=== PATIENT | male | born 1955 | race Hispanic/Latino ===

== ENCOUNTER 2020-07-13 00:55 | Emergency (ER) | payer MEDICARE ==
[~2020-07-13] VITALS: Ht 177.8 cm; Wt 95.3 kg
[2020-07-13] MEDS ORDERED: PANTOPRAZOLE 40 MG 10ML VIAL IV STA (01:01)
[2020-07-13] MEDS ORDERED: KETOROLAC TROMETHAMINE 30 MG/ML VIAL IV STA (01:01)
[2020-07-13 01:15] LABS: BASOPHILS # (AUTO) 0.1 (0.0-0.1); BASOPHILS % 0.6 % (0.0-1.0); EOSINOPHILS # (AUTO) 0.4 (0.0-0.4); EOSINOPHILS % 4.7 % (0.0-6.0); HEMATOCRIT 45.6 % (38.2-49.6); HEMOGLOBIN 15.1 g/dL (14.0-18.0); LYMPHOCYTES # (AUTO) 2.7 (1.0-3.2); LYMPHOCYTES % 32.2 % (18.0-39.1); MEAN CORPUSCULAR HEMOGLOBIN 28.3 pg (28-32); MEAN CORPUSCULAR HGB CONC 33.1 g/dL (31-35); MEAN CORPUSCULAR VOLUME 85.6 fL (81-99); MONOCYTES # (AUTO) 0.8 (0.2-0.8); MONOCYTES % 9.3 % (4.4-11.3); NEUTROPHILS # (AUTO) 4.5 (2.1-6.9); NEUTROPHILS % 52.6 % (38.7-80.0); PLATELET COUNT 233 x10e3/uL (140-360); RED BLOOD COUNT 5.33 x10e6/uL (4.3-5.7); RED CELL DISTRIBUTION WIDTH 13.7 % (11.7-14.4)
[2020-07-13] MEDS ORDERED: DICYCLOMINE HCL 20 MG/2 ML VIAL IM ONE (01:15)
--- NOTE | 2020-07-13 01:20 | Emergency Department Note ---
History of Present Illnes History of Present Illness Chief Complaint: Abdominal Complaints History of Present Illness This is a 64 year old male WITH INTERMITTENT RUQ PAIN FOR OVER A MONTH, PAIN STARTED AGAIN AFTER EATING CEREAL WITH MILK AT 8 PM LAST NIGHT, PT REPORTS DIAGNOSED WITH GALLSTONES. DENIES N/V/D, HAS AN APPOINTMENT WITH SURGEON THIS MORNING TO SCHEDULE CHOLECYSTECTOMY. Historian: Patient Arrival Mode: Car Onset (how long ago): month(s) (1) Location: RUQ Quality: PAIN Radiation: Reports back Severity: moderate Onset quality: sudden Duration (how long): hour(s) (1) Timing of current episode: constant Progression: partially resolved Chronicity: recurrent Context: Reports recent illness (DIAGNOSED WITH GALLSTONES 1 WEEK AGO); Denies recent surgery, Denies trauma/injury Relieving factors: none Exacerbating factors: other (EATING) Associated symptoms: Reports denies other symptoms Treatments prior to arrival: none Past Medical/Family History Physician Review I have reviewed the patient's past medical and family history. Any updates have been documented here. Past Medical History Recent Fever: No Clinical Suspicion of Infectio: No New/Unexplained Change in Ment: No Past Medical History: Hypertension, Hyperlipedemia Past Surgical History: Knee Replacement, Back Surgery Social History Smoking Cessation: Never Smoker Alcohol Use: None Any Illegal Drug Use: No Family History Family history of heart diseas: No Review of Systems Review of Systems Constitutional: Reports no symptoms EENTM: Reports no symptoms Cardiovascular: Reports no symptoms Respiratory: Reports no symptoms Gastrointestinal: Reports as per HPI Genitourinary: Reports no symptoms Musculoskeletal: Reports no symptoms Integumentary: Reports no symptoms Neurological: Reports no symptoms Psychological: Reports no symptoms Endocrine: Reports no symptoms Hematological/Lymphatic: Reports no symptoms Physical Exam Related Data Allergies: Coded Allergies: No Known Allergies (Unverified , 07/13/20) Triage Vital Signs Vital Signs Date Time Temp Pulse Resp B/P (MAP) Pulse Ox O2 Delivery O2 Flow Rate FiO2 07/13/20 01:00 97.9 87 20 158/98 99 Room Air Vital signs reviewed: Yes Physical Exam CONSTITUTIONAL Constitutional: Present well-developed, Present well-nourished; Absent distressed HENT HENT: Present normocephalic, Present atraumatic, Present oropharynx c lear/moist, Present nose normal HENT L/R: Present left ext ear normal, Present right ext ear normal EYES Eyes: Reports PERRL, Reports conjunctivae normal NECK Neck: Present ROM normal PULMONARY Pulmonary: Present effort normal, Present breath sounds normal CARDIOVASCULAR Cardiovascular: Present regular rhythm, Present heart sounds normal, Present capillary refill normal, Present normal rate GASTROINTESTINAL Abdominal: Present soft, Present bowel sounds normal, Present tender (MILD RUQ ); Absent guarding, Absent mass GENITOURINARY Genitourinary: Present exam deferred SKIN Skin: Present warm, Present dry MUSCULOSKELETAL Musculoskeletal: Present ROM normal NEUROLOGICAL Neurological: Present alert, Present oriented x 3, Present no gross motor or sensory deficits PSYCHOLOGICAL Psychological: Present mood/affect normal, Present judgement normal Results Laboratory Laboratory Laboratory Tests Test 07/13/20 01:08 White Blood Count 8.46 x10e3/uL (4.8-10.8) Red Blood Count 5.33 x10e6/uL (4.3-5.7) Hemoglobin 15.1 g/dL (14.0-18.0) Hematocrit 45.6 % (38.2-49.6) Mean Corpuscular Volume 85.6 fL (81-99) Mean Corpuscular Hemoglobin 28.3 pg (28-32) Mean Corpuscular Hemoglobin Concent 33.1 g/dL (31-35) Red Cell Distribution Width 13.7 % (11.7-14.4) Platelet Count 233 x10e3/uL (140-360) Neutrophils (%) (Auto) 52.6 % (38.7-80.0) Lymphocytes (%) (Auto) 32.2 % (18.0-39.1) Monocytes (%) (Auto) 9.3 % (4.4-11.3) Eosinophils (%) (Auto) 4.7 % (0.0-6.0) Basophils (%) (Auto) 0.6 % (0.0-1.0) Neutrophils # (Auto) 4.5 (2.1-6.9) Lymphocytes # (Auto) 2.7 (1.0-3.2) Monocytes # (Auto) 0.8 (0.2-0.8) Eosinophils # (Auto) 0.4 (0.0-0.4) Basophils # (Auto) 0.1 (0.0-0.1) Absolute Immature Granulocyte (auto 0.05 x10e3/uL (0-0.1) Sodium Level 140 mmol/L (136-145) Potassium Level 3.8 mmol/L (3.5-5.1) Chloride Level 103 mmol/L (98-107) Carbon Dioxide Level 26 mmol/L (22-29) Anion Gap 14.8 mmol/L (8-16) Blood Urea Nitrogen 15 mg/dL (7-26) Creatinine 1.02 mg/dL (0.72-1.25) Estimat Glomerular Filtration Rate > 60 ML/MIN (60-) BUN/Creatinine Ratio 15 (6-25) Glucose Level 133 mg/dL (74-118) Calcium Level 9.6 mg/dL (8.4-10.2) Total Bilirubin 0.5 mg/dL (0.2-1.2) Aspartate Amino Transf (AST/SGOT) 20 IU/L (5-34) Alanine Aminotransferase (ALT/SGPT) 35 IU/L (0-55) Alkaline Phosphatase 76 IU/L (40-150) Total Protein 7.5 g/dL (6.5-8.1) Albumin 4.4 g/dL (3.5-5.0) Globulin 3.1 g/dL (2.3-3.5) Albumin/Globulin Ratio 1.4 (0.8-2.0) Amylase Level 54 U/L (25-125) Lipase 30 U/L (8-78) Lab results reviewed: Yes Assessment & Plan Medical Decision Making MDM PT WITH KNOWN GALLSTONES WITH RUQ PAIN CBC, CMP, AMYLASE, LIPASE, ORDERED TO EVAL FOR ELEVATED LFT'S, PANCREATITIS, ELECTROLYTE ABNORMALITY, LEUKOCYTOSIS PROTONIX 40 MG IV ORDERED BENYTL 20 MG IM ORDERED TORADOL 30 MG IV ORDERED Reassessment Reassessment time: 01:36 Reassessment PT NOW PAIN FREE Assessment & Plan Final Impression: (1) Gallstones (2) Biliary colic Depart Disposition: HOME, SELF-CARE Last Vital Signs Date Time Temp Pulse Resp B/P (MAP) Pulse Ox O2 Delivery O2 Flow Rate FiO2 07/13/20 01:00 97.9 87 20 158/98 99 Room Air Medications in the ED Dicyclomine HCl 20 mg ONCE ONCE IM ; Start 07/13/20 at 01:15; Stop 07/13/20 at 01:16 Ketorolac Tromethamine 30 mg ONCE STAT IV ; Start 07/13/20 at 01:01; Stop 07/13/20 at 01:02; Status UNV Pantoprazole Sodium 40 mg NOW STAT IV ; Start 07/13/20 at 01:01; Stop 07/13/20 at 01:02; Status UNV BERNABE PATEL MD Jul 13, 2020 01:20
--- OUTSIDE RECORDS SUMMARY | 2020-07-13 01:29 | XMS REPORT | Continuity of Care Document ---
Author Author [facility] t Organization [facility] Address [address] [place] [address] Phone Unavailable Care Team Providers Care Leather Goods Maker Name Role Phone Anil GARCIA, Andrew PCP Unavailable Problems Condition Name Condition Details Condition Category Status Onset Date Resolution Date Last Treatment Date Treating Clinician Comments Source Cervical radiculopathy Cervical radiculopathy Disease Active 2018-02-04 00:00:00 [facility] Allergies, Adverse Reactions, Alerts Allergy Name Allergy Type Status Severity Reaction(s) Onset Date Inacti ve Date Treating Clinician Comments Source Tamsulosin Propensity to adverse reactions Active 01-28 00:00:[address] [facility] Social History Social Habit Start Date Stop Date Quantity Comments Source Sex Assigned At [facility] Smoking Status Start Date Stop Date Source Never smoker [facility] Medications Ordered Medication Name Filled Medication Name Start Date Stop Da te Current Medication? Ordering Clinician Indication Dosage Frequency Signature (SIG) Comments Components Source quinapril (ACCUPRIL) 5 MG tablet 2018-01-28 08:55:55 Yes 5mg Q.5D Take 5 mg by mouth 2 (two) times daily . [facility] finasteride (PROSCAR) 5 mg tablet 2018-01-28 08:55:55 Yes 5mg QD Take 5 mg by mouth daily. [facility] HYDROcodone-acetaminophen (NORCO 10-325) 10-325 mg per table t 2018-01-28 08:55:55 Yes 1{tbl} Take 1 tab let by mouth every 6 (six) hours as needed for Pain. [facility] omeprazole (PRILOSEC) 40 MG capsule 2018-01-28 08:55:55 Yes 40mg QD Take 40 mg by mouth daily. [facility] traMADol (ULTRAM-ER) 300 MG 24 hr tablet 2018-01-26 08:40:54 Yes 300mg QD Take 300 mg by mouth daily. [facility] simvastatin (ZOCOR) 40 MG tablet 2018-01-26 08:38:37 Yes 40mg QD Take 40 mg by mouth nightly. [facility] Procedures This patient has no known procedures. Results Test Description Test Time Test Comments Results Result Comments Source CT, MYELOGRAM, CERVICAL VIA LUMBAR INJECTION,W/FLUORO 03-02 13:44:00 Reason for Exam:->m54.12 Addendum BeginsREPORT STATUS:A PATIENT I D: [id number] TECHNIQUE: Dose modulation, iterative reconstruction, and/or weight based adjustment of the mA/kV was utilized to reduce the radiation dose to as low as reasonably achievable. Signed: Natanael Momin MDReport Verified Date/Time: 03/02/2018 13:44:20 Reading Location: [facility] Radiology Reading RoomAddendum EndsFINAL REPORT Cervical myelogram 3 views with post myelogram CT cervical spine 01/26/2018 11:04 AM CLINICAL INDICATION: m54.12 COMPARISON: None available TOTAL FLUOROSCOPY TIME: 2.1 minutes DESCRIPTION OF PROCEDURE: Details of the procedure, risks, benefits, alternatives, and questions were discussed. Informed consent was obtained from the patient as documented on the chart. The patient was sterilely prepped and d raped; 1% lidocaine was used for local anesthesia. Using fluoroscopic guidance, a 22 gauge spinal needle was introduced into the thecal sac at the L2-3 level and 10 cc of Isovue-M 300 were infused. The patient was placed in Trendelenburg position with the neck extended and myelographic images of the cervical spine were obtained. There were no procedure-related complications. The patient was transferred to CT for axial imaging obtained with bone and soft tissue algorithms with sagittal and coronal reconstructions. FINDINGS: there is no fracture or malalignment. There are no osteolytic or osteoblastic lesions. Spinal cord is normal in size and contour. There is congenital spinal stenosis; AP central canal diameter measures 11 to 12 mm. At C2-3, uncovertebral joint arthropathy contributes to mild right foraminal stenosis. At C3-4, dorsal disc osteophyte complex and facet joint arthropathy contribute to mild right and severe left foraminal stenosis. Posterior ligamentous thickening contribute to m ild central canal stenosis. At C4-5, dorsal disc osteophyte complex and facet joint arthropathy contribute to mild bilateral foraminal stenosis. Posterior ligamentous thickening contribute to mild central canal stenosis. At C5-6, dorsal disc osteophyte complex and facet joint arthropathy contribute to severe bilateral foraminal stenosis, with mild central canal stenosis. At C6-7, dorsal disc osteophyte complex and facet joint arthropathy contribute to severe bilateral foraminal stenosis, with mild canal stenosis. C7-T1, posterolateral left dorsal osteophytic ridging and facet joint arthropathy contribute to mild right and severe left foraminal stenosis. The conventional myelographic images support these findings. The visualized soft tissue is without worrisome findings. DISPOSITION: The patient was discharged home in stable condition after the usual time course of observation. IMPRESSION: 1. No fracture or traumatic malalignment.2. Congenital spinal stenosis.3. Multilevel degenerative changes as discussed. Signed: Natanael Momin Verified Date/Time: 01/26/2018 11:09:47 Reading Location: [address] Neuro Reading Room , MYELOGRAM, CERVICAL 2018-03-02 13:44:00 Reason for Exam:->m5 4.12 Addendum BeginsREPORT STATUS:A TECHNIQUE: Dose modulation, iterative reconstruction, and/or weight based adjustment of the mA/kV was utilized to reduce the radiation dose to as low as reasonably achievable. Signed: Natanael Momin Verified Date/Time: 03/02/2018 13:44:20 Reading Location: [facility] Radiology Reading RoomAddendum EndsFINAL REPORT Cervical myelogram 3 views with post myelogram CT cervical spine 01/26/2018 11:04 AM CLINICAL INDICATION: m54.12 COMPARISON: None available TOTAL FLUOROSCOPY TIME: 2.1 minutes DESCRIPTION OF PROCEDURE: Details of the procedure, risks, benefits, alternatives, and questions were discussed. Informed consent was obtained from the patient as documented on the chart. The patient was sterilely prepped and draped; 1% lidocaine was used for local anesthesia. Using fluoroscopic guidance, a 22 gauge spinal needle was introduced into the thecal sac at the L2-3 level and 10 cc of Isovue-M 300 were infused. Th e patient was placed in Trendelenburg position with the neck extended and myelographic images of the cervical spine were obtained. There were no procedure-related complications. The patient was transferred to CT for axial imaging obtained with bone and soft tissue algorithms with sagittal and coronal reconstructions. FINDINGS: there is no fracture or malalignment. There are no osteolytic or osteoblastic lesions. Spinal cord is normal in size and contour. There is congenital spinal stenosis; AP central canal diameter measures 11 to 12 mm. At C2-3, uncovertebral joint arthropathy contributes to mild right foraminal stenosis. At C3-4, dorsal disc osteophyte complex and facet joint arthropathy contribute to mild right and severe left foraminal stenosis. Posterior ligamentous thickening contribute to mild central canal stenosis. At C4-5, dorsal disc osteophyte complex and facet joint arthropathy contribute to mild bilateral foraminal stenosis. Posterior ligamentous thickening contribute to mild central canal stenosis. At C5-6, dorsal disc osteophyte complex and facet joint arthropathy contribute to severe bilateral foraminal stenosis, with mild central canal stenosis. At C6-7, dorsal disc osteophyte complex and facet joint arthropathy contribute to severe bilateral foraminal stenosis, with mild canal stenosis. C7-T1, posterolateral left dorsal osteophytic ridging and facet joint arthropathy contribute to mild right and severe left foraminal stenosis. The conventional myelographic images support these findings. The visualized soft tissue is without worrisome findings. DISPOSITION: The patient was discharged home in stable condition after the usual time course of observation. IMPRESSION: 1. No fracture or traumatic malalignment.2. Congenital spinal stenosis.3. Multilevel degenerative changes as discussed. Signed: Natanael Momin Verified Date/Time: 01/26/2018 11:09:47 Reading Location: [facility] [id number] Neuro Reading Room , SPINE, CERVICAL, 1 VIEW 2018-02-04 09:55:00 Reason for exam:->CERVICAL RADICULOPATHY FINAL REPORT Cerv ical spine one view INDICATION: Surgical localization. COMPARISON: 01/26/2018 IMPRESSION: For counting purposes, 7 non rib-bearing cervical type vertebrae are assumed. A surgical curette projects over the posterior elements at the C6-7 intervertebral level. Retractors are seen posteriorly. Support devices are in place. Findings were reported to Dr. Valencia in or 12 at 9:55 AM. The surgeon agrees with these findings. Signed: Linda Steward [facility] Verified Date/Time: 02/04/2018 09:55:14 Reading Location: [facility] Radiology Reading Room
--- OUTSIDE RECORDS SUMMARY | 2020-07-13 01:29 | XMS REPORT | Clinical Summary ---
Author Author [facility] [place] [place] Address Unknown Phone Unavailable Care Team Providers Care Events Traffic Controller Name Role Phone Andrew Ma MD PCP Unavailable Allergies Comments Active Allergy Reactions Severity Noted Date dizziness Tamsulosin 01/28/2018 Medications End Date Status Medication Sig Dispensed Refills Start Date Active quinapril (ACCUPRIL) 5 MG Take 5 mg by 0 tablet mouth 2 (two) times daily . Active simvastatin (ZOCOR) 40 MG Take 40 mg by 0 tablet mouth nightly. Active traMADol (ULTRAM-ER) 300 Take 300 mg 0 MG 24 hr tablet by mouth daily. Active finasteride (PROSCAR) 5 Take 5 mg by 0 mg tablet mouth daily. Active HYDROcodone-acetaminophen Take 1 tablet 0 (NORCO 10-325) 10-325 mg by mouth per tablet every 6 (six) hours as needed for Pain. Active omeprazole (PRILOSEC) 40 Take 40 mg by 0 MG capsule mouth daily. Active Problems Problem Noted Date Cervical radiculopathy 02/04/2018 Social History Date Tobacco Use Types Packs/Day Years Used Never Smoker Smokeless Tobacco: Never Used Alcohol Use Drinks/Week oz/Week Comments No Sex Assigned at Date Recorded Not on file Industry Job Start Date Occupation Not on file Not on file Not on file Travel End Travel History Travel Start No recent travel history available. Last Filed Vital Signs Not on file Plan of Treatment Not on file Results Not on fileafter 07/13/2019 Insurance Payer Benefit Subscriber ID Type Phone Address Plan / Group BLUE CROSS/BLUE SHIELD BCBS HMO xxxxxxxxxxxx HMO/POS [address] [place] [address] [place] [phone] Advance Directives For more information, please contact: [address] [address] Date Inactivated Comments Code Status Date Activated 02/04/2018 7:58 PM Full Code 02/04/2018 6:23 AM This code status was determined by: Patient
[2020-07-13 01:31] LABS: AMYLASE 54 U/L (25-125); LIPASE 30 U/L (8-78)
[2020-07-13 01:32] LABS: ALANINE AMINOTRANSFERASE 35 IU/L (0-55); ALBUMIN 4.4 g/dL (3.5-5.0); ALBUMIN/GLOBULIN RATIO 1.4 (0.8-2.0); ALKALINE PHOSPHATASE 76 IU/L (40-150); ANION GAP 14.8 mmol/L (8-16); BLOOD UREA NITROGEN 15 mg/dL (7-26); BUN/CREATININE RATIO 15 (6-25); CALCIUM 9.6 mg/dL (8.4-10.2); CARBON DIOXIDE 26 mmol/L (22-29); CHLORIDE 103 mmol/L (98-107); CREATININE, SERUM 1.02 mg/dL (0.72-1.25); EST GLOMERULAR FILTRATION RATE > 60 ML/MIN (60-); GLUCOSE 133 mg/dL (74-118); POTASSIUM 3.8 mmol/L (3.5-5.1); SODIUM 140 mmol/L (136-145)
[2020-07-13 01:40] VITALS: BP 138/85
== END 2020-07-13 01:43 | disposition home or self-care (01) ==
LOC: ER 01:20
DX: R10.11 Right upper quadrant pain (principal); K80.80 Other cholelithiasis without obstruction; I10 Essential (primary) hypertension; E78.5 Hyperlipidemia, unspecified
CPT/HCPCS: 36415; 80053; 82150; 83690; 85025; 99283; C9113; J0500; J1885

== ENCOUNTER 2021-05-23 08:30 | Emergency (ER) | payer MEDICARE ==
[~2021-05-23] VITALS: Ht 177.8 cm; Wt 95.3 kg
[2021-05-23] MEDS ORDERED: SODIUM CHLORIDE 0.9% 1000ML 1,000 ML IV SCH (09:00)
[2021-05-23] MEDS ORDERED: DICYCLOMINE HCL 20 MG/2 ML VIAL IM ONE (09:00)
[2021-05-23 09:15] LABS: BASOPHILS # (AUTO) 0.1 (0.0-0.1); BASOPHILS % 0.7 % (0.0-1.0); EOSINOPHILS # (AUTO) 0.5 (0.0-0.4); EOSINOPHILS % 4.9 % (0.0-6.0); HEMATOCRIT 43.1 % (38.2-49.6); HEMOGLOBIN 14.4 g/dL (14.0-18.0); LYMPHOCYTES # (AUTO) 2.3 (1.0-3.2); LYMPHOCYTES % 22.1 % (18.0-39.1); MEAN CORPUSCULAR HEMOGLOBIN 28.9 pg (28-32); MEAN CORPUSCULAR HGB CONC 33.4 g/dL (31-35); MEAN CORPUSCULAR VOLUME 86.4 fL (81-99); MONOCYTES # (AUTO) 0.7 (0.2-0.8); MONOCYTES % 6.6 % (4.4-11.3); NEUTROPHILS # (AUTO) 6.8 (2.1-6.9); PLATELET COUNT 263 x10e3/uL (140-360); RED BLOOD COUNT 4.99 x10e6/uL (4.3-5.7); RED CELL DISTRIBUTION WIDTH 13.5 % (11.7-14.4)
[2021-05-23 09:46] LABS: ALBUMIN/GLOBULIN RATIO 1.3 (0.8-2.0); ANION GAP 10.8 mmol/L (8-16); CALCIUM 8.8 mg/dL (8.4-10.2); CREATININE, SERUM 1.05 mg/dL (0.72-1.25); POTASSIUM 3.8 mmol/L (3.5-5.1)
[2021-05-23] MEDS ORDERED: SODIUM CHLORIDE 0.9% 50ML 50 ML ONE (10:48)
[2021-05-23] MEDS ORDERED: IOPAMIDOL 370 MG/ML 200 ML INFUS..BTL INJ ONE (10:48)
[2021-05-23] MEDS ORDERED: DICYCLOMINE HCL10 MG PO (11:29)
== END 2021-05-23 11:44 | disposition home or self-care (01) ==
LOC: ER 08:57
DX: R19.7 Diarrhea, unspecified (principal); R10.9 Unspecified abdominal pain; I10 Essential (primary) hypertension; E78.5 Hyperlipidemia, unspecified
CPT/HCPCS: 36415; 74177; 80053; 83690; 85025; 99284; J0500; J7030; Q9967